=== PATIENT | male | born 1955 | race Caucasian/White ===

== ENCOUNTER 2018-02-08 16:01 | Emergency (ER) | payer OTHER ==
[~2018-02-08] VITALS: Ht 172.7 cm; Wt 83.9 kg
[2018-02-08] MEDS ORDERED: Cyclobenzaprine5 MG PO (17:34)
[2018-02-08] MEDS ORDERED: Norco 5-325 Ta1 EACH PO (17:34)
== END 2018-02-08 17:46 | disposition home or self-care (01) ==
LOC: ER 16:01
DX: M54.9 Dorsalgia, unspecified (principal); J02.9 Acute pharyngitis, unspecified
CPT/HCPCS: 87081; 87430; 99283

== ENCOUNTER 2018-08-01 16:54 | Emergency (ER) | payer OTHER ==
[~2018-08-01] VITALS: Ht 172.7 cm; Wt 79.4 kg
[~2018-08-01 16:54] MED LIST: Cyclobenzaprine5 MG PO; Norco 5-325 Ta1 EACH PO
[2018-08-01] MEDS ORDERED: Cephalexin500 MG PO (19:35)
[2018-08-01] MEDS ORDERED: Percocet 5-3251 EACH PO (19:35)
== END 2018-08-01 19:52 | disposition home or self-care (01) ==
LOC: ER 16:54
DX: S61.210A Laceration without foreign body of right index finger without damage to nail, initial encounter (principal); W31.2XXA Contact with powered woodworking and forming machines, initial encounter
CPT/HCPCS: 12032; 29125; 73140; 90471; 90714; 96365; 99283-25; J0690

== ENCOUNTER 2018-08-02 17:18 | Emergency (ER) | payer OTHER ==
[~2018-08-02] VITALS: Ht 172.7 cm; Wt 81.7 kg
[~2018-08-02 17:18] MED LIST changes: +Cephalexin500 MG PO; +Percocet 5-3251 EACH PO
== END 2018-08-02 17:57 | disposition home or self-care (01) ==
LOC: ER 17:18
DX: S61.210D Laceration without foreign body of right index finger without damage to nail, subsequent encounter (principal); W26.8XXD Contact with other sharp object(s), not elsewhere classified, subsequent encounter
CPT/HCPCS: 99282

== ENCOUNTER 2020-08-18 06:15 | Day surgery (SDC) | payer OTHER ==
[~2020-08-18] VITALS: Ht 175.3 cm; Wt 68.5 kg
[~2020-08-18 06:15] MED LIST changes: +COD LIVER OIL PO
[2020-08-18] MEDS ORDERED: MULVITA PO (06:30)
--- NOTE | 2020-08-18 09:50 | NUR ---
Dressing to procedure site clean, dry, intact with no visible drainage, swelling, erythema or bruising noted.
--- NOTE | 2020-08-18 10:35 | NUR ---
Patient up to Ambulate independently. Gait steady. Dressing to procedure site clean, dry, intact with no visible drainage, swelling, erythema or bruising noted. Discharge instructions reviewed with patient. Patient verbalizes understanding. Copy given to patient to take home. Patient States Post-Procedure ride home has been arranged. Discharged via wheelchair to private car for ride home.
== END 2020-08-18 10:37 | disposition home or self-care (01) ==
LOC: ORSCMMR 06:15 → ORD 07:30 → ORSCMMR 10:37
PROVIDERS: Surgery
PROC: 0YU64JZ Supplement Left Inguinal Region with Synthetic Substitute, Percutaneous Endoscopic Approach (ICD-10-PCS; principal; 2020-08-18 07:30)
PROC: 8E0W4CZ Robotic Assisted Procedure of Trunk Region, Percutaneous Endoscopic Approach (ICD-10-PCS; principal; 2020-08-18 07:30)
DX: K40.90 Unilateral inguinal hernia, without obstruction or gangrene, not specified as recurrent (principal); G47.33 Obstructive sleep apnea (adult) (pediatric); E78.5 Hyperlipidemia, unspecified; R73.03 Prediabetes
CPT/HCPCS: 49650; S2900; 82947; C1781; J0690; J1100; J1885; J2250; J2405; J2704; J2710; J3010; J7120

== ENCOUNTER 2022-09-02 11:48 | Day surgery (SDC) | payer MEDICARE ==
[~2022-09-02] VITALS: Ht 167.6 cm; Wt 84.9 kg
[~2022-09-02 11:48] MED LIST changes: +MULVITA PO
== END 2022-09-02 14:29 | disposition home or self-care (01) ==
LOC: ORSCSDS 11:48
PROVIDERS: Internal Medicine Gastroenterology
PROC: 0DJD8ZZ Inspection of Lower Intestinal Tract, Via Natural or Artificial Opening Endoscopic (ICD-10-PCS; principal; 2022-09-02 13:15)
DX: Z12.11 Encounter for screening for malignant neoplasm of colon (principal); K57.30 Diverticulosis of large intestine without perforation or abscess without bleeding; G47.30 Sleep apnea, unspecified; E11.9 Type 2 diabetes mellitus without complications; Z79.84 Long term (current) use of oral hypoglycemic drugs
CPT/HCPCS: J2704; J7120